=== PATIENT | female | born 1960 | race American Indian/Alaskan Native ===

== ENCOUNTER 2020-12-09 09:01 | Outpatient (CLI) | payer OTHER ==
--- NOTE | 2020-12-10 09:47 | Mammography Report ---
DIGITAL SCREENING MAMMOGRAM WITH CAD, 12/09/2020 CLINICAL INFORMATION / INDICATION: Routine screening mammography. SCREENING MAMMOGRAM TECHNIQUE: Digital bilateral 2D mammography was obtained in the craniocaudal and mediolateral obliqu e projections. This examination was interpreted with the benefit of Computer-Aided Detection analysis . COMPARISON: None. FINDINGS: Breast Density: The breasts are heterogeneously dense, which may obscure small masses. No dominant mass, suspicious calcifications, or architectural distortion in either breast. IMPRESSION: No mammographic evidence of malignancy. Follow up recommendation: Routine yearly BI-RADS Category 1: Negative. A "normal" or negative report should not discourage follow up or biopsy of a clinically significant f inding. A written summary of these findings will be mailed to the patient. The patient will be entered into a mammography reporting system which will generate a reminder letter for the patient's next appointmen t at the appropriate interval. The [employer] recommends yearly mammograms starting at age 40 and continuing as l evette as a woman is in good health. Breast MRI is recommended for women with an approximate 20-25% or greater lifetime risk of breast cancer, including women with a strong family history of breast or ova goran cancer or who have been treated for Hodgkin's disease. Signer Name: Shar Ayala MD Signed: 12/10/2020 9:42 AM Workstation Name: [id number]
== END 2020-12-09 09:02 | disposition home or self-care (01) ==
LOC: MAMMO 09:01
PROVIDERS: ATTEND Internal Medicine
DX: Z12.31 Encounter for screening mammogram for malignant neoplasm of breast (principal)
CPT/HCPCS: 77067

== ENCOUNTER 2021-08-28 12:39 | Outpatient (CLI) | payer OTHER ==
--- NOTE | 2021-08-28 15:30 | Cat Scan Report ---
CT CHEST WITHOUT CONTRAST, LOW-DOSE SCREENING INDICATION / CLINICAL INFORMATION: Z87.891 NICOTINE USE/SMOKER LUNG SCREENING. TECHNIQUE Thin section axial imaging performed from the lung apices through the costophrenic sulci using low-do se technique. All CT scans at this location are performed using CT dose reduction for ALARA by means of automated exposure control. COMPARISON: None available. FINDINGS: LUNGS: Emphysematous changes seen within the lungs. Minimal scarring left lung apex. No focal consoli dation, pleural effusion or pneumothorax is seen. Mild to moderate coronary artery calcification . Heart size appears normal. No mediastinal or hilar adenopathy. UPPER ABDOMEN: Evaluation is limited due to low-dose technique. No significant abnormality. SKELETAL SYSTEM: No significant abnormality. IMPRESSION: 1. Most Suspicious Nodule (if any): No pulmonary nodule. 2. Lung-RADS Category 1: NEGATIVE - Recommendation: Continue annual low dose CT (LDCT) screening in 12 months. - Please see below for additional details. 3. Emphysema Lung-RADS Version 1.1 Assessment Categories (2019) CATEGORY 0: INCOMPLETE - Incomplete exam or Prior chest CT examination(s) being located for comparison - Recommendation: Additional lung cancer screening CT images and/or comparison to prior chest CT exa minations is needed CATEGORY 1: NEGATIVE - No lung nodules OR benign nodules - Recommendation: Continue annual low dose CT (LDCT) screening in 12 months. CATEGORY 2: BENIGN APPEARANCE OR BEHAVIOR - PERIFISSURAL nodule: < 10.0 mm - SOLID nodule: Prior nodule < 6.0 mm or New nodule < 4.0 mm - PARTIALLY SOLID nodule: < 6.0 mm - NONSOLID nodule: < 30 mm or > 30 mm and unchanged or slow growth (< 1.5 mm since last exam) - CATEGORY 3 or 4 nodules unchanged for >= 3 months - Recommendation: Continue annual LDCT screening in 12 months. CATEGORY 3: PROBABLY BENIGN - SOLID nodule: 6.0-7.9 mm at Baseline OR New solid nodule between 4.0-5.9 mm. - PARTIALLY SOLID nodule: >= 6.0 mm with solid component < 6.0 mm OR new < 6.0 mm total diameter - NONSOLID nodule: >= [address] or new - Recommendation: Follow-up LDCT in 6 months. CATEGORY 4A: SUSPICIOUS - SOLID nodule: 8.0-14.9 mm OR Growing < 8.0 mm OR New 6-7.9 mm. - PARTIALLY SOLID nodule: >= 6.0 mm with solid component 6.0-7.9 mm OR New/Growing solid component < 4.0 mm - ENDOBRONCHIAL nodule - Recommendation: Follow-up with LDCT in 3 months; or, PET/CT may be used if there is a solid compon ent to the nodule measuring 8.0 mm or larger. CATEGORY 4B: VERY SUSPICIOUS - Prior SOLID nodule: >= 15.0 mm OR New/Growing component and >= 8.0 mm - PARTIALLY SOLID nodule: solid component >= 8.0 mm OR New/Growing solid component >= 4.0 mm - Recommendation: Follow-up with CT chest with contrast, PET/CT, and or tissue sampling depending on comorbidities and probability of malignancy as determined by the referring clinician. PET/CT may be used when there is a solid component of at least 8.0 mm. For new large nodules that develop on an an nual repeat screening CT, a 1 month LDCT may be recommended to address potentially infectious or infl ammatory conditions. CATEGORY 4X: VERY SUSPICIOUS - CATEGORY 3 or 4 nodules with additional features or imaging findings that increases the suspicion of malignancy. - Recommendation: Follow-up with CT chest with contrast, PET/CT, and or tissue sampling depending on comorbidities and probability of malignancy as determined by the referring clinician. PET/CT may be used when there is a solid component of at least 8.0 mm. For new large nodules that develop on an an nual repeat screening CT, a 1 month LDCT may be recommended to address potentially infectious or infl ammatory conditions. Signer Name: Hiram Jules MD Signed: 08/28/2021 3:25 PM Workstation Name: [email or web address]
== END 2021-08-28 12:40 | disposition home or self-care (01) ==
LOC: CT 12:39
PROVIDERS: ATTEND Internal Medicine
DX: Z12.2 Encounter for screening for malignant neoplasm of respiratory organs (principal); J43.9 Emphysema, unspecified; I25.10 Atherosclerotic heart disease of native coronary artery without angina pectoris; Z87.891 Personal history of nicotine dependence
CPT/HCPCS: 71250